=== PATIENT | female | born 1970 | race Caucasian/White ===

== ENCOUNTER 2016-10-16 17:09 | Emergency (ER) | payer OTHER ==
[2016-10-16] MEDS ORDERED: SYNTHROID PO (17:15)
[2016-10-16 19:31] VITALS: BP 120/70
== END 2016-10-16 19:33 | disposition home or self-care (01) ==
LOC: ED 17:09
DX: S09.90XA Unspecified injury of head, initial encounter (principal); F07.81 Postconcussional syndrome; V43.52XA Car driver injured in collision with other type car in traffic accident, initial encounter

== ENCOUNTER → 2020-10-01 | Outpatient (CLI) | payer BC ==
[~2020-10-01] MED LIST: SYNTHROID PO
[2020-10-01 17:02] LABS: EOS # 0.2 (0.04-0.40); EOS % 4.7 % (1.0-5.0); HEMATOCRIT 43.8 % (37.0-47.0); HEMOGLOBIN 14.1 g/dL (12.5-16.0); LYMPH# 1.2 (1.50-4.00); MEAN CELL VOLUME 93 fl (78-100); MEAN CORPUSCULAR HEMOGLOBIN 30 pg (27-31); MEAN CORPUSCULAR HGB CONC 32 g/dL (33-37); MEAN PLATELET VOLUME 10.3 fl (7.4-10.4); MONO # 0.4 (0.20-0.80); NEU # 1.9 (1.40-6.50); PLATELET COUNT 162 K/mm3 (130-400); RED BLOOD COUNT 4.71 M/mm3 (4.10-5.30); RED CELL DISTRIBUTION WIDTH 13.5 % (11.5-14.5); WHITE BLOOD COUNT 3.6 K/mm3 (4.8-10.8)
[2020-10-01 17:13] LABS: ALBUMIN 4.6 g/dL (3.5-5.0); POTASSIUM 4.4 mmol/L (3.5-5.1)
[2020-10-01 17:14] LABS: CALCIUM 9.5 mg/dL (8.3-10.5)
[2020-10-01 17:16] LABS: TOTAL PROTEIN 7.7 g/dL (6.4-8.3)
[2020-10-01 17:17] LABS: TOTAL BILIRUBIN 0.5 mg/dL (0.2-1.2)
== END ==
LOC: LAB 16:51
PROVIDERS: Family Medicine
DX: Z00.00 Encounter for general adult medical examination without abnormal findings (principal); E78.5 Hyperlipidemia, unspecified; E03.9 Hypothyroidism, unspecified

== ENCOUNTER → 2020-11-27 | Outpatient (CLI) | payer BC | LOC: LAB 15:15 | DX: E03.9 Hypothyroidism, unspecified (principal) ==

== ENCOUNTER → 2020-12-07 | Outpatient (CLI) | payer BC | LOC: LAB 15:50 | DX: Z12.11 Encounter for screening for malignant neoplasm of colon (principal) ==

== ENCOUNTER 2021-11-14 17:53 | Emergency (ER) | payer BC ==
[~2021-11-14] VITALS: Ht 157.5 cm; Wt 47.7 kg
[2021-11-14 18:36] LABS: BASO # 0.01 K/mm3 (0.02-0.10); EOS # 0.01 K/mm3 (0.04-0.40); EOS % 0.1 % (1.0-5.0); HEMATOCRIT 42.9 % (37.0-47.0); HEMOGLOBIN 14.1 g/dL (12.5-16.0); MEAN CELL VOLUME 89 fl (78-100); MEAN CORPUSCULAR HEMOGLOBIN 29 pg (27-31); MEAN CORPUSCULAR HGB CONC 33 g/dL (33-37); MEAN PLATELET VOLUME 10.6 fl (7.4-10.4); MONO # 0.61 K/mm3 (0.20-0.80); NEU # 6.96 K/mm3 (1.40-6.50); PLATELET COUNT 139 K/mm3 (130-400); RED BLOOD COUNT 4.81 M/mm3 (4.10-5.30); RED CELL DISTRIBUTION WIDTH 12.8 % (11.5-14.5); WHITE BLOOD COUNT 8.5 K/mm3 (4.8-10.8)
[2021-11-14 18:48] LABS: ALBUMIN 4.3 g/dL (3.5-5.0); POTASSIUM 3.8 mmol/L (3.5-5.1)
[2021-11-14 18:50] LABS: CALCIUM 9.8 mg/dL (8.3-10.5)
[2021-11-14 18:51] LABS: TOTAL PROTEIN 7.5 g/dL (6.4-8.3)
[2021-11-14 18:53] LABS: TOTAL BILIRUBIN 1.5 mg/dL (0.2-1.2)
[2021-11-14 19:07] LABS: LIPASE 21 U/L (8-78)
[2021-11-14 20:50] VITALS: BP 117/52
== END 2021-11-14 20:50 | disposition short-term general hospital (02) ==
LOC: ED 17:53
PROVIDERS: Nurse Practitioner
DX: K35.80 Unspecified acute appendicitis (principal)
CPT/HCPCS: J1885; Q9967

== ENCOUNTER 2021-11-20 11:44 | Emergency (ER) | payer BC ==
[2021-11-20] MEDS ORDERED: LEVOTHYROXIN0.088 MG PO (11:50)
[2021-11-20] MEDS ORDERED: AMOXICILLIN AND1 TA2 PO (11:50)
[2021-11-20 12:33] LABS: BASO # 0.02 K/mm3 (0.02-0.10); EOS # 0.14 K/mm3 (0.04-0.40); EOS % 2.6 % (1.0-5.0); HEMATOCRIT 46.4 % (37.0-47.0); LYMPH# 1.11 K/mm3 (1.50-4.00); MEAN CELL VOLUME 89 fl (78-100); MEAN CORPUSCULAR HEMOGLOBIN 29 pg (27-31); MEAN CORPUSCULAR HGB CONC 32 g/dL (33-37); MEAN PLATELET VOLUME 10.1 fl (7.4-10.4); MONO # 0.48 K/mm3 (0.20-0.80); NEU # 3.64 K/mm3 (1.40-6.50); PLATELET COUNT 205 K/mm3 (130-400); RED BLOOD COUNT 5.22 M/mm3 (4.10-5.30); RED CELL DISTRIBUTION WIDTH 12.8 % (11.5-14.5); WHITE BLOOD COUNT 5.4 K/mm3 (4.8-10.8)
[2021-11-20 12:37] LABS: ALBUMIN 4.2 g/dL (3.5-5.0)
[2021-11-20 12:38] LABS: POTASSIUM 3.9 mmol/L (3.5-5.1)
[2021-11-20 12:39] LABS: CALCIUM 9.8 mg/dL (8.3-10.5)
[2021-11-20 12:40] LABS: TOTAL PROTEIN 7.5 g/dL (6.4-8.3)
[2021-11-20 12:42] LABS: TOTAL BILIRUBIN 0.7 mg/dL (0.2-1.2)
[2021-11-20 14:10] LABS: PH-URINE 6.5 (5.0 - 8.0); URINE APPEARANCE CLEAR; URINE BILIRUBIN NEGATIVE (NEGATIVE); URINE BLOOD NEGATIVE (NEGATIVE); URINE COLOR YELLOW; URINE GLUCOSE NEGATIVE (NEGATIVE); URINE KETONE NEGATIVE (NEGATIVE); URINE LEUKOCYTE ESTERASE NEGATIVE (NEGATIVE); URINE NITRATE NEGATIVE (NEGATIVE); URINE PROTEIN(semi-quant) TRACE (NEGATIVE); URINE UROBILINOGEN NORMAL (NORMAL)
[2021-11-20 14:11] LABS: URINE MUCUS PRESENT (NOT PRESENT)
[2021-11-20 14:39] VITALS: BP 115/61
== END 2021-11-20 14:44 | disposition home or self-care (01) ==
LOC: ED 11:44
PROVIDERS: Nurse Practitioner Family
DX: R05.9 Cough, unspecified (principal)
CPT/HCPCS: J7030

== ENCOUNTER → 2023-10-07 | Outpatient (CLI) | payer BC ==
[~2023-10-07] MED LIST changes: +AMOXICILLIN AND1 TA2 PO; +LEVOTHYROXIN0.088 MG PO
[2023-10-07 12:06] LABS: BASO # 0.02 K/mm3 (0.02-0.10); EOS # 0.09 K/mm3 (0.04-0.40); EOS % 2.3 % (1.0-5.0); HEMATOCRIT 41.4 % (37.0-47.0); HEMOGLOBIN 13.4 g/dL (12.5-16.0); LYMPH# 1.18 K/mm3 (1.50-4.00); MEAN CELL VOLUME 89 fl (78-100); MEAN CORPUSCULAR HEMOGLOBIN 29 pg (27-31); MEAN CORPUSCULAR HGB CONC 32 g/dL (33-37); MONO # 0.39 K/mm3 (0.20-0.80); NEU # 2.27 K/mm3 (1.40-6.50); PLATELET COUNT 147 K/mm3 (130-400); RED BLOOD COUNT 4.66 M/mm3 (4.10-5.30)
[2023-10-07 12:11] LABS: ALBUMIN 4.4 g/dL (3.5-5.0)
[2023-10-07 12:12] LABS: CALCIUM 9.6 mg/dL (8.3-10.5)
[2023-10-07 12:13] LABS: TOTAL PROTEIN 7.3 g/dL (6.4-8.3)
[2023-10-07 12:15] LABS: TOTAL BILIRUBIN 0.62 mg/dL (0.2-1.2)
== END ==
LOC: LAB 11:55
PROVIDERS: Nurse Practitioner
DX: M35.00 Sjogren syndrome, unspecified (principal)

== ENCOUNTER → 2023-11-23 | Outpatient (CLI) | payer BC | LOC: RAD 10:26 | DX: Z12.31 Encounter for screening mammogram for malignant neoplasm of breast (principal); M17.12 Unilateral primary osteoarthritis, left knee ==